=== PATIENT | female | born 1965 | race Two or more races ===

== ENCOUNTER 2023-10-11 16:00 | Emergency (ER) | payer MEDICAID, OTHER ==
[~2023-10-11] VITALS: Ht 154.9 cm; Wt 60.0 kg
[2023-10-11 21:06] VITALS: BP 142/86; PULSE 76; RESP 18; TEMP 98.2; O2SAT 99
== END 2023-10-11 22:15 | disposition home or self-care (01) ==
LOC: ER 16:00
DX: S23.41XA Sprain of ribs, initial encounter (principal); J45.909 Unspecified asthma, uncomplicated; Z98.890 Other specified postprocedural states; X58.XXXA Exposure to other specified factors, initial encounter; Y93.89 Activity, other specified; Y92.89 Other specified places as the place of occurrence of the external cause; Y99.8 Other external cause status
CPT/HCPCS: 71101

== ENCOUNTER 2024-12-18 15:21 | Emergency (ER) | payer MEDICAID ==
[~2024-12-18] VITALS: Ht 152.4 cm; Wt 57.8 kg
[2024-12-18 15:27] VITALS: BP 139/88; PULSE 90; RESP 20; TEMP 98; O2SAT 99
[2024-12-18] MEDS: methylPREDNISolone SOD SUCC 125 MG/2 ML VL IM ONE (16:33)
[2024-12-18] MEDS: HYDROcodone-ACET 7.5/325MG TAB PO ONE (16:34)
--- NOTE | 2024-12-18 16:40 | DVH ---
X-ray right shoulder Technique: AP internal and external rotation views and transscapular views REASON FOR EXAM: shoulder pain INDICATION: shoulder pain FINDINGS: No fractures or dislocations. No erosions or periosteal reaction. Articular surfaces are sm ooth. IMPRESSION: 1. No bony pathology
[2024-12-18] MEDS ORDERED: ACET500T58 PO (16:52)
[2024-12-18] MEDS ORDERED: PRED20TA2 PO (16:52)
[2024-12-18] MEDS ORDERED: METH4PAK PO (16:53)
--- NOTE | 2024-12-18 16:53 | ED.PDOC ---
Back pain HPI HPI Comments 51-year-old female presents with a chief complaint of atraumatic right cervical pain that radiates down the right upper extremity worsens with movements. Symptoms started two days ago. Denies CP/SOB Chief Complaint: Neck Pain Time Seen by MD: 15:48 Primary Care Provider: UNKNOWN Reviewed Notes: Nurses Notes, Medications, Allergies Allergies: Coded Allergies: Baclofen (Verified Allergy, Unknown, 12/18/24) Ibuprofen (Verified Allergy, Unknown, 12/18/24) Home Meds Active Scripts Methylprednisolone (Medrol Dosepak) 4 Mg Murali, 4 MG PO UD for 7 Days, #21 TAB 0 Refills [facility] Prov:DE DRISCOLL CERTIFIED ETHICAL HACKER 12/18/24 Acetaminophen (Acetaminophen) 500 Mg Tab, 500 MG PO Q6HP PRN for 7 Days, #28 TAB 0 Refills Prov:DE DRISCOLL CERTIFIED ETHICAL HACKER 12/18/24 Information Source: Patient Mode of Arrival: Ambulatory Past Medical History PAST MEDICAL HISTORY: Asthma Surgical History: Hernia Repair SEM MANAGER History: No Pertinent SEM MANAGER History Family History Family History: Unknown Social History Smoker: Non-Smoker Alcohol: Denies ETOH Use Drugs: Denies Drug Use Lives In: Home All Other Systems: Reviewed and Negative (per hpi) Physical Exam General Appearance: No Apparent Distress, Normal HEENT: Normal ENT Inspection, Pharynx Normal, TMs Normal Neck: Full Range of Motion, Non-Tender, Normal, Normal Inspection Respiratory: Chest Non-Tender, Lungs Clear, No Accessory Muscle Use, No Respiratory Distress, Normal Breath Sounds Cardiovascular: No Murmur, No Gallop, Regular Rate/Rhythm Breast Exam: Deferred Gastrointestinal: No Organomegaly, Non Tender, No Pulsatile Mass, Normal Bowel Sounds, Soft Genitalia: Deferred Pelvic: Deferred Rectal: Deferred Extremities: No calf tenderness, Normal capillary refill, Normal inspection, Normal range of motion, Non-tender, No pedal edema Musculoskeletal : Location: Right Extremity Location: Shoulder (No gross abnormality on inspection. No shoulder drop visible. No clavicular tenderness on palpation. Palpation tenderness to coracoid process and acromion process. No scapular, supraspinatus, infraspinatus tenderness to touch. Limited flexion passive movement due to pain. Pain with abduction. ) Apperance: Normal Neurologic: Alert, No Motor Deficits, Normal Affect, Normal Mood, No Sensory Deficits Cerebellar Function: Normal Reflexes: Normal Skin: Dry, Normal Color, Warm Lymphatic: No Adenopathy Was a procedure done? Was a procedure done?: No Back Pain Differential Dx Differential Diagnosis: Strain, Other X-Ray, Labs, Meds, VS Vital Signs Date Time Temp Pulse Resp B/P (MAP) Pulse Ox O2 Delivery O2 Flow Rate FiO2 12/18/24 15:27 98.0 90 20 139/88 (105) 99 98.0 Current Medications Medications (Trade) Dose Ordered Sig/Annmarie Route Start Time Stop Time Status Last Admin Acetaminophen/ Hydrocodone Bitart ([place] 7.5/325MG Tab) 1 tab ONCE ONCE PO 12/18/24 16:30 12/18/24 16:31 DC 12/18/24 16:34 Methylprednisolone Sodium Succinate (Solu Medrol) 125 mg ONCE ONCE IM 12/18/24 16:30 12/18/24 16:31 DC 12/18/24 16:33 X-Ray, Labs, Meds, VS Comment On reevaluation, patient had symptomatic improvement. Patient is stable for discharge at this time. External notes reviewed. Test results and diagnostic imaging interpreted. All diagnostic findings, discharge care, education and instructions provided Follow-up with PCP in 2 to 3 days Patient verbalized understanding and agreed to treatment plan Vital signs stable, afebrile, no acute distress noted Patient ambulatory with strong steady gait Advised to return precautions for any new or worsening symptoms, return to ER immediately for re-evaluation Patient is aware that the purpose of this visit was for an acute medical emergency requiring emergent stabilization. Chronic conditions, including malignancies have not been ruled out. Patient is instructed to follow up with PCP as directed and discharge instructions for continued care and workup. If unable to arrange follow-up, patient is to return to the emergency department for reassessment. Patient (parent or legal guardian if applicable) was given verbal and written discharge instructions and acknowledges understanding. Time of 1ST Reevaluation: 16:30 Reevaluation 1ST: Improved Patient Education/Counseling: Diagnosis, Treatment Family Education/Counseling: Diagnosis, Treatment Departure 1 Departure Time of Disposition: 16:51 Impression: Primary Impression: Cervical radiculopathy Disposition: HOME / SELF CARE / HOMELESS Condition: Stable e-Prescriptions Methylprednisolone (Medrol Dosepak) 4 Mg Murali 4 MG PO UD for 7 Days, #21 TAB 0 Refills UAD Prov: DE DRISCOLL CERTIFIED ETHICAL HACKER 12/18/24 Acetaminophen (Acetaminophen) 500 Mg Tab 500 MG PO Q6HP PRN for 7 Days, #28 TAB 0 Refills Prov: DE DRISCOLL NP 12/18/24 Critical Care Note Critical Care Time?: No Stability Stability form required: No Heart Score Heart Score: Heart Score Response (Comments) Value History N/A 0 EKG N/A 0 Age N/A 0 Risk Factors N/A 0 Troponin N/A 0 Total 0 DE DRISCOLL NP Dec 18, 2024 16:53
== END 2024-12-18 17:00 | disposition home or self-care (01) ==
LOC: ER 15:21
DX: M54.12 Radiculopathy, cervical region (principal); J45.909 Unspecified asthma, uncomplicated; Z88.6 Allergy status to analgesic agent; Z98.890 Other specified postprocedural states
CPT/HCPCS: 73030; 96372; 99283; J2919